=== PATIENT | male | born 1945 | race Caucasian/White ===

== ENCOUNTER 2016-10-28 17:06 | Inpatient (IN) ==
[2016-10-28] MEDS ORDERED: ADENOSINE 6 MG/2 ML VIAL ONE (17:11)
[2016-10-28] MEDS ORDERED: ADENOSINE 6 MG/2 ML VIAL IV STA ×2 (17:27→17:28)
[2016-10-28 17:33] LABS: Basophils # 0.1 10*3/uL (0.0-0.2); Basophils % 0.6 % (0.0-0.8); Eosinophils # 0.4 10*3/uL (0.0-0.87); Eosinophils % 4.2 % (0.00-10.9); Hematocrit 46.1 VOL% (42.0-52.0); Hemoglobin 14.9 GM/DL (14.0-18.0); Immature Granulocytes % 0.3 %; Immature Granulocytes Absolute 0.03 #; Lymphocytes # 2.8 10*3/uL (1.4-4.0); Lymphocytes % 31.3 % (21.2-54.2); Mean Corpuscular HGB Conc 32.3 GM/DL (32-36); Mean Corpuscular Hemoglobin 26 PG (27-34); Mean Corpuscular Volume 81.6 FL (87-102); Mean Platelet Volume 12.1 FL (9.6-12.0); Monocytes # 0.9 10*3/uL (0.11-0.8); Neutrophils # 4.8 10*3/uL (1.4-7.4); Neutrophils % 53.6 % (38.7-73.9); Platelet Count 218 10*3/uL (130-400); Red Blood Count 5.65 10*6/uL (3.8-5.5); Red Cell Distribution Width 14.7 % (9.3-17.3)
--- NOTE | 2016-10-28 17:33 | Emergency Department Note ---
Kevin Cuevas Brittany, am scribing for, and in the presence of, Katty Pinedo DO 17:28. Khris Cuevas Debra, DO, personally performed the services described in this documentation, ascribed by Rain Brown in my presence, and it is both accurate and complete 733 . Arrival - Arrival Chief Complaint: Chest Pain ED Nursing Triage Note: c/o stabbing chest pain to center of chest. 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 He states that while eating dinner this evening he began to have heart palpitations that soon was followed by chest pain. Patient notes that after arrival to the ED he became short of breath and pain began to radiate into his back and down bilateral upper extremities. He denies any recent change in medications. Patient reports that some of his regular medications include Lisinopril, Aspirin 81 mg, and Metformin. Patient has a history of 5 vessel bypass on June 12, [address] Crook. Patient at time of history and physical has a heart rate of 174 beats per minute. After 2 Adenosine, patients heart rate is now at 92 beats per minute. No other complaint /pain. Allergies/Adverse Reactions: Allergies Allergy/AdvReac Type Severity Reaction Status Date / Time aspirin Allergy Unknown/Unable Verified 10/28/16 17:27 to obtain coconut Allergy Unknown/Unable Verified 10/28/16 17:27 to obtain coconut oil Allergy Unknown/Unable Verified 10/28/16 17:27 to obtain iodine Allergy Unknown/Unable Verified 10/28/16 17:27 to obtain latex Allergy Unknown/Unable Verified 10/28/16 17:27 to obtain Macrolide Antibiotics Allergy Unknown/Unable Verified 10/28/16 17:27 to obtain Penicillins Allergy Unknown/Unable Verified 10/28/16 17:27 to obtain Shellfish Allergy Unknown/Unable Verified 10/28/16 17:27 to obtain Sulfa (Sulfonamide Allergy Unknown/Unable Verified 10/28/16 17:27 Antibiotics) to obtain Pork AdvReac Unknown/Unable Verified 10/28/16 17:27 to obtain Whipped Cream AdvReac Unknown/Unable Verified 10/28/16 17:27 to obtain Home Medications: Home Medications Medication Instructions Recorded Confirmed Type glyBURIDE [Glyburide] 5 mg PO BID W/MEALS 06/03/16 10/28/16 History Lisinopril 5 mg PO DAILY 06/19/16 10/28/16 History metFORMIN [Glucophage] 500 mg PO DAILY 06/19/16 10/28/16 History Aspirin [Ecotrin] 81 mg PO QAM 10/28/16 10/28/16 History Review of System - Review of System 12 point system: reviewed and no additional remarkable complaints except as stated - Review of System Constitutional: Absent: diaphoresis, weakness Respiratory: Present: respiratory distress Cardiovascular: Present: chest pain Gastrointestinal: Absent: abdominal pain, nausea, vomiting Genitourinary male: Absent: urgency, dysuria, frequency Musculoskeletal: Present: arm pain, back pain. Absent: neck pain Neurological: Absent: headache Medical,Surgical,& Family Hx - Medical History Cardio: History of: CAD, Hypertension Neurology: No history of: Seizures Endocrine: History of: Diabetes Mellitus (IDDM), Dyslipidemia Respiratory: History of: Asthma, Intubation, Pneumonia Gastrointestinal: History of: GERD Musculoskeletal: History of: Back/Neck Problems (titanium maynor in neck, X3 surgeries) - Surgical History Cardiac Surgeries: Sugical HX of: Cardiac Catheterization (may2016), Cardiac Surgery (CABG [address] Rodriguez) Abdominal Surgeries: Patient denies: Abdominal Surgery Orthopedic Surgeries: Surgical HX of;: Orthopedic Surgery (right knee surgery april2016) - Family History Family History: Reports;: Family Cancer, Family Diabetes, Family Heart Disease, Family Hypertension, Family Stroke - Social History Smoking Status: Former smoker Exam Vital Signs: Vital Signs Temperature 96.9 F L 10/28/16 17:09 Pulse Rate 176 H 10/28/16 17:09 Respiratory Rate 20 10/28/16 17:23 Blood Pressure 193/132 10/28/16 17:09 O2 Sat by Pulse Oximetry 100 10/28/16 17:09 - General General appearance: alert, in no apparent distress, obese (mildly) - Head Head exam: Present: atraumatic, normocephalic - Eye Eye exam: Present: PERRL, EOMI - ENT ENT exam: Present: mucous membranes moist, TM's normal bilaterally - Neck Neck exam: Present: full ROM, trachea midline. Absent: tenderness - Chest Chest inspection: Present: symmetric chest wall rise. Absent: normal inspection (scar consistent with recent open heart surgery), tenderness - Respiratory Respiratory exam: Present: rales (to the right). Absent: normal lung sounds bilaterally - Cardiovascular Cardiovascular exam: Present: normal rhythm, tachycardia (174 beats per minute) , normal heart sounds. Absent: regular rate - Abdominal Exam Abdominal exam: Present: soft, normal bowel sounds. Absent: distention, tenderness - Extremities Exam Extremities exam: Present: full ROM. Absent: tenderness, pedal edema - Back Exam Back exam: Present: full ROM. Absent: tenderness - Neurological Exam Neurological exam: Present: alert, oriented X3, CN II-XII intact, normal gait, reflexes normal. Absent: motor sensory deficit - Psychiatric Psychiatric exam: Present: normal affect, normal mood - Skin Skin exam: Present: warm, dry, intact, normal color Course Course Narrative: dr Infante to admit pt Results - Labs CBC & BMP: 10/28/16 17:11 10/28/16 17:11 Lab Results: I have reviewed the patients labs Labs: Laboratory Tests 10/28/16 17:11 WBC 9.0 RBC 5.65 H Hgb 14.9 Hct 46.1 MCV 81.6 L MCH 26 L MCHC 32.3 RDW 14.7 Plt Count 218 MPV 12.1 H Neut % (Auto) 53.6 Lymph % (Auto) 31.3 [place] % (Auto) 10.0 Eos % (Auto) 4.2 Baso % (Auto) 0.6 Neut # (Auto) 4.8 Lymph # (Auto) 2.8 [place] # (Auto) 0.9 H Eos # (Auto) 0.4 Baso # (Auto) 0.1 Immature Gran % 0.3 Nucleated RBC % 0.0 Immature Gran # 0.03 Nucleated RBCs # 0.00 Laboratory Tests 10/28/16 17:11 Sodium 142 Potassium 4.2 Chloride 105 Carbon Dioxide 26 Anion Gap 15.2 H BUN 16 Creatinine 1.40 H GFR Calculation 60 BUN/Creatinine Ratio 11.00 Glucose 123 H Calculated Osmolality 284.1 Calcium 9.1 Total Bilirubin < 0.39 AST 21 ALT 20 Alkaline Phosphatase 93 Total Creatine Kinase 122 CK-MB (CK-2) 6.1 H CK and CKMB Interp 5.0 Troponin I 0.567 H Total Protein 7.0 Albumin 4.0 Globulin 3.0 Albumin/Globulin Ratio 1.3 Laboratory Tests 10/28/16 10/28/16 17:11 17:11 INR 1.0 PT Patient/Control Mix 10.7 Circ Anticoag PTT 27.0 B-Natriuretic Peptide 492 H - Diagnostic Findings Procedure: Chest x-ray: report reviewed by me (Continued cardiomegaly without fransico pulmonary edema.) Disposition Clinical Impression: Chest pain Case discussed with: patient, patient's family Disposition: Still a Patient Condition: Stable Time of Disposition: 19:23
[2016-10-28 17:49] LABS: Alanine Aminotransferase 20 U/L (16-61); Alkaline Phosphatase 93 U/L (45-117); Aspartate Amino Transferase 21 U/L (0-37); Bilirubin,Total < 0.39 MG/DL (0.2-1.0); Blood Urea Nitrogen 16 MG/DL (7-18); Calcium 9.1 MG/DL (8.5-10.1); Glucose 123 MG/DL (74-106); Osmolality,Calculated 284.1 MOS/KG (273-304); Potassium 4.2 MMOL/L (3.5-5.1); Sodium 142 MMOL/L (136-145)
[2016-10-28 17:50] LABS: Troponin I Only 0.567 NG/ML (0.00-0.045)
--- NOTE | 2016-10-28 17:55 | XRay Report ---
XR chest 1V portable Indication: Chest pain Comparison: Chest x-ray dated June 19, 2016 Technique: Single frontal view of the chest Findings: Continued cardiomegaly status post sternotomy. No focal consolidation, pleural effusion, or pneumothorax. Osseous and surrounding soft tissue structures appear grossly unchanged. IMPRESSION: Continued cardiomegaly without fransico pulmonary edema. PROCEDURE INTERPRETED AT [facility] DEPARTMENT OF RADIOLOGY Final Report Signed by: Dr Osmel Forde
[2016-10-28 18:04] LABS: PT Patient Result 10.7 SECS
[2016-10-28] MEDS ORDERED: SODIUM CHLORIDE 0.9% 1,000 ML IV STA (18:50)
[2016-10-28] MEDS ORDERED: MAGNESIUM SULF RIDER 2 GM in PREMIX 1 EACH IV PRN (19:24)
[2016-10-28] MEDS ORDERED: MAGNESIUM SULF RIDER 4 GM in PREMIX 1 EACH IV PRN (19:24)
[2016-10-28] MEDS ORDERED: MORPHINE 2 MG/1 ML SYRINGE IV PRN (19:24)
[2016-10-28] MEDS ORDERED: ONDANSETRON 4 MG/2 ML VIAL IV PRN (19:24)
[2016-10-28] MEDS ORDERED: traZODone 50 MG TABLET PO PRN (19:24)
[2016-10-28] MEDS ORDERED: ENOXAPARIN 40 MG/0.4 ML SYRINGE SUBCUT SCH (19:30)
[2016-10-28 20:36] LABS: Risk Ratio 4.24; Thyroid Stimulating Hormone 4.22 uIU/ml (0.358-3.74); VLDL CHOLESTEROL 54.4 MG/DL
--- NOTE | 2016-10-28 20:36 | Cardiology History & Physical ---
Assessment and Plan (1) SVT (supraventricular tachycardia) Status: Acute Assessment and plan: 71yM, ICM s/p CABG, HTN, HLP, T2DM. Presented with first episode of symptomatic SVT, converted with adenosine. Enzymes suggestive of demand ischemia. Mild BRENDON. -Cont ASA, increase metoprolol to 50 mg bid -Add Crestor 10 mg qd -Cont lisinopril -LE US, r/o DVT -Telemetry -resume diabetic meds -Echo -trend cardiac enzymes, recheck ECG. So far, demand ischemia due to sustained high HR is likely -If the arrhythmia is refractory to medical management, EPS/ablation can be pursued. -iv hydration, recheck BMP in AM Current Visit: Yes (2) Ischemic cardiomyopathy Status: Acute Current Visit: No (3) Hypertension Status: Acute Current Visit: No (4) Diabetes mellitus Status: Acute Current Visit: No (5) Hyperlipidemia Status: Acute Current Visit: No History of Present Illness Chief complaint: SVT History of present illness: Mr. Tse is a 71 year old male, followed by dr. Ramirez. H/o CAD, s/p CABG 05/2016. HTN, HLP, T2DM. He did well post surgery and is actually completing cardiac rehab. Today, after lunch he developed sudden onset sustained palpitations. He never had this before. This later caused chest pressure and he came to the ER for evaluation. A regular narrow QRS tachycardia was found, which converted with adenosine. No visible R-P. Cardiac biomarkers mildly elevated. He is now feeling better. Post surgery, he developed RLE swelling, which is not improving much. The sternal incision healed well. Home Medications Medication Instructions Recorded Confirmed Type glyBURIDE [Glyburide] 5 mg PO BID W/MEALS 06/03/16 10/28/16 History Lisinopril 5 mg PO DAILY 06/19/16 10/28/16 History metFORMIN [Glucophage] 500 mg PO DAILY 06/19/16 10/28/16 History Aspirin [Ecotrin] 81 mg PO QAM 10/28/16 10/28/16 History Allergies Allergy/AdvReac Type Severity Reaction Status Date / Time aspirin Allergy Unknown/Unable Verified 10/28/16 17:27 to obtain coconut Allergy Unknown/Unable Verified 10/28/16 17:27 to obtain coconut oil Allergy Unknown/Unable Verified 10/28/16 17:27 to obtain iodine Allergy Unknown/Unable Verified 10/28/16 17:27 to obtain latex Allergy Unknown/Unable Verified 10/28/16 17:27 to obtain Macrolide Antibiotics Allergy Unknown/Unable Verified 10/28/16 17:27 to obtain Penicillins Allergy Unknown/Unable Verified 10/28/16 17:27 to obtain Shellfish Allergy Unknown/Unable Verified 10/28/16 17:27 to obtain Sulfa (Sulfonamide Allergy Unknown/Unable Verified 10/28/16 17:27 Antibiotics) to obtain Pork AdvReac Unknown/Unable Verified 10/28/16 17:27 to obtain Whipped Cream AdvReac Unknown/Unable Verified 10/28/16 17:27 to obtain 12 point system: reviewed and no additional remarkable complaints except as stated Medical,Surgical,& Family Hx - Medical History Cardio: History of: CAD, Hypertension Neurology: No history of: Seizures Endocrine: History of: Diabetes Mellitus (IDDM), Dyslipidemia Respiratory: History of: Asthma, Intubation, Pneumonia Gastrointestinal: History of: GERD Musculoskeletal: History of: Back/Neck Problems (titanium maynor in neck, X3 surgeries) - Surgical History Cardiac Surgeries: Sugical HX of: Cardiac Catheterization (may2016), Cardiac Surgery (CABG [address] vess[address] Rodriguez) Abdominal Surgeries: Patient denies: Abdominal Surgery Orthopedic Surgeries: Surgical HX of;: Orthopedic Surgery (right knee surgery april2016) - Family History Family History: Reports;: Family Cancer, Family Diabetes, Family Heart Disease, Family Hypertension, Family Stroke - Social History Smoking Status: Former smoker Frequency of Alcohol Use: None Type of Drug Use: None Cardiology Physical Exam - Constitutional Vitals: Vital Signs Temp Pulse Resp BP Pulse Ox 96.9 F L 79 20 131/64 94 L 10/28/16 17:09 10/28/16 19:47 10/28/16 19:47 10/28/16 19:47 10/28/16 19:47 General appearance: over weight - Head Head exam: Present: normal inspection - Eye Eye exam: Absent: conjunctival injection Pupils: Absent: dilated - ENT ENT exam: Present: normal exam - Neck Neck exam: Present: normal inspection - Respiratory Respiratory exam: Present: clear to auscultation bilaterally - Cardiovascular Cardiovascular exam: Present: regular rate and rhythm - GI/Abdominal GI/Abdominal exam: Present: normal bowel sounds - Extremities Exam Extremities exam: Present: normal inspection, normal capillary refill, other ( RLE swelling, incision healed per secondary intention) - Back Exam Back exam: Present: normal inspection - Neurological Exam Neurological exam: Present: alert, oriented X3 - Psychiatric Psychiatric exam: Present: normal affect, normal mood - Skin Skin exam: Present: normal color, warm. Absent: cyanosis Result/EKG - Labs CBC & BMP: 10/28/16 17:11 10/28/16 17:11 Lab Results: I have reviewed the past 24 hour labs - EKG EKG results: interpreted by me
[2016-10-28] MEDS ORDERED: ROSUVASTATIN 10 MG TABLET PO SCH (21:00)
[2016-10-28] MEDS ORDERED: GLUCAGON 1 MG VIAL IM PRN (21:37)
[2016-10-28] MEDS ORDERED: DEXTROSE 50% 25 GM/50 ML VIAL IV PRN (21:37)
[2016-10-28 21:38] LABS: CKMB % 7.3 %
[2016-10-28 21:42] LABS: Troponin I Only 1.16 NG/ML (0.00-0.045)
[2016-10-28] MEDS: INSULIN LISPRO 100 UNIT/ML SUBCUT SCH (22:14)
--- NOTE | 2016-10-28 22:27 | Ultrasound Report ---
US venous doppler LE BI Indication: RLE swelling. Comparison: No relevant comparison. Technique: Grayscale, spectral, and color Doppler interrogation of the bilateral lower extremity veins was performed. Augmentation and compression was performed. Findings: Grayscale, color Doppler, and pulsed Doppler evaluation of the veins of the bilateral lower extremity demonstrate no evidence of deep venous thrombosis. IMPRESSION: No evidence of deep venous thrombosis in the bilateral lower extremity. PROCEDURE INTERPRETED AT [facility] DEPARTMENT OF RADIOLOGY Final Report Signed by: Dr Osmel Forde
[2016-10-28 23:37] LABS: CKMB % 8.4 %
[2016-10-28 23:43] LABS: Troponin I Only 1.59 NG/ML (0.00-0.045)
[2016-10-28] MEDS: SODIUM CHLORIDE 0.9% 1,000 ML IV SCH (23:44)
[2016-10-29 06:16] LABS: CKMB % 7.3 %
[2016-10-29 06:19] LABS: Troponin I Only 1.44 NG/ML (0.00-0.045)
[2016-10-29] MEDS ORDERED: glyBURIDE 5 MG TABLET PO SCH (08:00)
[2016-10-29] MEDS ORDERED: metFORMIN 500 MG TABLET PO SCH (09:00)
[2016-10-29] MEDS ORDERED: LISINOPRIL 5 MG TABLET PO SCH (09:00)
[2016-10-29] MEDS ORDERED: ASPIRIN EC 81 MG TABLET PO SCH (09:00)
[2016-10-29] MEDS ORDERED: METOPROLOL SUCCINATE XL 50 MG TABLET PO SCH (09:00)
--- NOTE | 2016-10-29 09:08 | EKG Report ---
Stationary ECG Study [facility] Test Date: 10/29/2016 9:07:29 AM Pat Name: BERTRAM MOTTA Department: Room: 282 Gender: M Remediation Technician: KEYANA : 1945 Requested by: Katty Pinedo Order Number: [id number] Reading MD: ELIZABETH REEVES Intervals [place] Rate: 61 P: 49 MO: 149 QRS: 96 QRSD: 89 T: -32 QT: 410 QTc: 413 Interpretive Statements SINUS RHYTHM WITH OCCASIONAL VENTRICULAR PREMATURE COMPLEXES BORDERLINE RIGHT AXIS DEVIATION LOW QRS VOLTAGE IN PRECORDIAL LEADS NONSPECIFIC T-WAVE ABNORMALITY Electronically Signed On 10-29-16 20:49:42 RANGE MANAGEMENT SPECIALIST by ELIZABETH REEVES [email or web address]
--- NOTE | 2016-10-29 09:55 | EKG Report ---
Stationary ECG Study [facility] ER Test Date: 10/28/2016 5:19:23 PM Pat Name: BERTRAM MOTTA Department: Room: 282 Gender: M Human Resources Assistant: QIAN : 1945 Requested by: Katty Pinedo Order Number: [id number] Reading MD: ELIZABETH REEVES Intervals [place] Rate: 97 P: 999 TN: 0 QRS: 90 QRSD: 96 T: 42 QT: 332 QTc: 387 Interpretive Statements Normal sinus rhythm W/ VPB'S POSSIBLE ANTERIOR MYOCARDIAL INFARCTION, OF INDETERMINATE AGE vs IVCD PROBABLE INFERIOR MYOCARDIAL INFARCTION, PROBABLY OLD Electronically Signed On 10-29-16 20:38:51 PARLIAMENTARY LIBRARIAN by ELIZABETH REEVES [email or web address]
--- NOTE | 2016-10-29 09:56 | EKG Report ---
Stationary ECG Study [facility] ER Test Date: 10/28/2016 5:08:43 PM Pat Name: BERTRAM MOTTA Department: Room: 282 Gender: M District Adviser: QIAN : 1945 Requested by: Katty Pineod Order Number: [id number] Reading MD: ELIZABETH REEVES Intervals [place] Rate: 176 P: 999 FL: 0 QRS: 60 QRSD: 109 T: 39 QT: 246 QTc: 340 Interpretive Statements SUPRAVENTRICULAR TACHYCARDIA PROBABLE INFERIOR MYOCARDIAL INFARCTION, PROBABLY OLD Electronically Signed On 10-29-16 20:37:58 COPY WORKER by ELIZABETH REEVES [email or web address]
[2016-10-29] MEDS: INSULIN LISPRO 100 UNIT/ML SUBCUT SCH ×2 (10:05→12:23)
[2016-10-29] MEDS: SODIUM CHLORIDE 0.9% 1,000 ML IV SCH (12:22)
[2016-10-29 16:17] VITALS: BP 112/51
--- NOTE | 2016-10-29 16:29 | Discharge Summary ---
Derek Cuevas Lauren, RN, am scribing for, and in the presence of, Francisco Infante MD 16: 27. Hospital Course - Hospital Course Hospital Course: Mr. Tse is a 71 year old male who is routinely followed by Dr. Ramirez. He has a history of coronary artery disease status post coronary artery bypass grafting 05/2016, hypertension, hyperlipidemia, and non insulin dependent diabetes mellitus. He was admitted yesterday with sudden onset palpitations, later developing chest pressure. He presented to the emergency department and was found to have supraventricular tachycardia. To his knowledge, this had never happened before. A regular narrow QRS tachycardia was found, which converted with adenosine. No visible R-P. Cardiac biomarkers were mildly elevated, demand ischemia due to sustained high heart rate. Since converting from SVT, his rhythm has been normal sinus rhythm with occasional PVC's, no acute changes. He has had continued lower extremity edema following CABG. He underwent venous doppler ultrasound today which showed no evidence of deep venous thrombosis in the bilateral lower extremities. Blood pressure has remained stable since being admitted to the telemetry unit. Following conversion with adenosine, heart rate has remained well controlled with rates of 50-70's. At this time he is feeling much better and is ready to be discharged yessenia. We discussed options for management of symptomatic supraventricular tachycardia , we will continue increased dose metoprolol for now. If the arrhytmia will be difficult to control medically, he could be a candidate for EP study/ablation. He is to follow up with Dr. Ramirez in 1 week with an EKG. - Time spent with patient Time with patient DS: Less than 30 minutes Diagnosis - Discharge Diagnosis (1) SVT (supraventricular tachycardia) Status: Acute (2) Diabetes mellitus Status: Acute (3) Hyperlipidemia Status: Acute (4) Hypertension Status: Acute (5) Ischemic cardiomyopathy Status: Acute Specialty Discharge - Follow Up or Referrals Follow up with: Rangel Ramirez MD [Physician] - 11/05/16 2:00 pm (Follow up with Dr. Ramirez November 05, 2016 at 2:00 PM with EKG. ) - Discharge Medications New Metoprolol Succinate Xl [Toprol Xl] 50 mg PO DAILY #30 tablet Rosuvastatin [Crestor] 10 mg PO BEDTIME #30 tablet Continue glyBURIDE [Glyburide] 5 mg PO BID W/MEALS metFORMIN [Glucophage] 500 mg PO DAILY Lisinopril 5 mg PO DAILY Aspirin [Ecotrin] 81 mg PO QAM Discharge Plan - Discharge Data Disposition: Disch To Home/Self Care Condition at Discharge: Stable Discharge Diet: heart healthy Activity: resume usual activities as tolerated Hygiene: no restrictions Weight Bearing at Discharge: full weight bearing - Discharge Medications New Metoprolol Succinate Xl [Toprol Xl] 50 mg PO DAILY #30 tablet Rosuvastatin [Crestor] 10 mg PO BEDTIME #30 tablet Continue glyBURIDE [Glyburide] 5 mg PO BID W/MEALS metFORMIN [Glucophage] 500 mg PO DAILY Lisinopril 5 mg PO DAILY Aspirin [Ecotrin] 81 mg PO QAM - Follow Up or Referral Follow Up: Rangel Ramirez MD [Physician] - 11/05/16 2:00 pm (Follow up with Dr. Ramirez November 05, 2016 at 2:00 PM with EKG. ) - Forms/Instructions Exam - Constitutional Vitals: Period Temp Pulse Resp BP Sys/Bolanos Pulse Ox Last 24 Hr 96.1 F-98.6 F 54-79 20-20 121-157/60-68 94-98 General appearance: no acute distress, morbidly obese - Head Head exam: Present: normal inspection, normocephalic - Eye Eye exam: Absent: conjunctival injection, periorbital swelling, scleral icterus Pupils: Present: ALEKSANDR. Absent: irregular - ENT ENT exam: Present: normal exam, normal external ear exam - Neck Neck exam: Present: normal inspection. Absent: tenderness - Respiratory Respiratory exam: Present: clear to auscultation bilaterally. Absent: accessory muscle use, chest wall tenderness, rales, rhonchi, stridor, wheezes - Cardiovascular Cardiovascular exam: Present: regular rate and rhythm. Absent: carotid bruit, diastolic murmur, systolic murmur - GI/Abdominal GI/Abdominal exam: Present: normal bowel sounds, soft. Absent: distended, mass , tenderness - Extremities Exam Extremities exam: Present: normal inspection, normal capillary refill, edema (1 + non pitting edema to BLE) - Back Exam Back exam: Present: normal inspection. Absent: vertebral tenderness - Neurological Exam Neurological exam: Present: alert, oriented X3, other (grossly intact, no resting or essential tremor) - Psychiatric Psychiatric exam: Present: normal affect, normal mood - Skin Skin exam: Present: normal color, warm, dry Discharge Results Labs on day of discharge: Labs from last 24 hours 10/29/16 10/29/16 10/29/16 11:42 07:43 05:08 POC Glucose 124 H 99 Total Creatine Kinase 130 CK-MB (CK-2) 9.5 H CK and CKMB Interp 7.3 Troponin I 1.440 H 10/28/16 10/28/16 10/28/16 22:49 21:02 20:59 POC Glucose 97 Total Creatine Kinase 133 139 CK-MB (CK-2) 11.2 H 10.1 H CK and CKMB Interp 8.4 7.3 Troponin I 1.590 H D 1.160 H D DS: Provider Expected date of discharge: 10/29/16 Arelis Cuevas Attila, MD, personally performed the services described in this documentation, ascribed by Lakia Reed RN in my presence, and it is both accurate and complete 628 .
--- NOTE | 2016-10-29 19:31 | ECHO Report ---
Jake Tse 10/29/2016 Exam Date: 08:06 Referring Physician: Bebe Mehtanologist: Age: 71 Ht (in): Wt (lb): MExam Location: [facility] Gender: Echo [id number]: SVT, Chest pain, hyperlipidemia, CADIndications: cardiomyopathy, HTN, Diabetes BP: / HR: SinusRhythm: Technical Quality: IMPRESSIONS Mildly dilated left ventricle, without hypertrophy, with mild global hypokinesis. Estimated left ventricular ejection fraction 40%. Grade 2 diastolic dysfunction. Mild biatrial enlargement. Mild aortic, tricuspid and mitral valve insufficiency. MEASUREMENTS (Male / Female) Normal Values 2D ECHO LV Diastolic Diameter PLAX 5.2 cm 4.2 - 5.9 / 3.9 - 5.3 cm LV Systolic Diameter PLAX 4.4 cm LV Fractional Shortening PLAX 16.4 % IVS Diastolic Thickness 1.5 cm 0.6 - 1.0 / 0.6 - 0.9 cm LVPW Diastolic Thickness 1.3 cm 0.6 - 1.0 / 0.6 - 0.9 cm RV Internal Dim ED PLAX 3.1 cm Aortic Root Diameter 3.0 cm LA Systolic Diameter LX 4.7 cm 3.0 - 4.0 / 2.7 - 3.8 cm DOPPLER TR Peak Velocity 210.0 cm/s TR Peak Gradient 17.6 mmHg FINDINGS Left Ventricle Mildly dilated left ventricle, without hypertrophy, with mild global hypokinesis. Estimated left ventricular ejection fraction 40%. Grade 2 diastolic dysfunction. Right Ventricle Normal right ventricular size. Right Atrium Mildly dilated right atrium. Left Atrium Mildly dilated left atrium. Mitral Valve Mildly thickened mitral valve with mild mitral regurgitation. Aortic Valve Structurally normal, with mild aortic valve regurgitation. Tricuspid Valve Morphologically normal tricuspid valve. Mild tricuspid valve regurgitation. Tricuspid regurgitation velocities suggest a PAP of 16 mmHg + RAP. Pulmonic Valve Morphologically normal pulmonic valve. Pericardium No pericardial effusion. Aorta Normal size aortic root and proximal ascending aorta. Francisco Infante (Electronically Signed) 29 October 2016 Final Date: 19:30
== END 2016-10-29 17:24 | disposition home or self-care (01) | DRG 310 ==
LOC: EDBD → EDUNIT# → N.ED 17:06 → N.EDINP 19:24 → N.TELEN 19:44
PROVIDERS: ADMIT Internal Medicine Interventional Cardiology; ATTEND Internal Medicine Interventional Cardiology

== ENCOUNTER 2018-10-14 13:48 | Observation (INO) ==
[2018-10-14] MEDS ORDERED: SODIUM CHLORIDE 0.9% 500 ML IV STA (14:26)
[2018-10-14] MEDS ORDERED: DIPH/TET/ACEL PERT BOOSTER VACCINE 0.5 ML VIAL IM ONE (14:26)
[2018-10-14 15:03] LABS: Basophils % 0.5 % (0.0-0.8); Eosinophils # 0.4 10*3/uL (0.0-0.87); Eosinophils % 4.3 % (0.00-10.9); Hematocrit 41.2 VOL% (42.0-52.0); Hemoglobin 13.7 GM/DL (14.0-18.0); Immature Granulocytes % 0.2 %; Immature Granulocytes Absolute 0.02 #; Lymphocytes # 1.4 10*3/uL (1.4-4.0); Lymphocytes % 16.8 % (21.2-54.2); Mean Corpuscular HGB Conc 33.3 GM/DL (32-36); Mean Corpuscular Hemoglobin 29 PG (27-34); Mean Corpuscular Volume 86.4 FL (87-102); Mean Platelet Volume 11.6 FL (9.6-12.0); Monocytes # 0.6 10*3/uL (0.11-0.8); Monocytes % 7.8 % (1.7-12.7); Neutrophils # 5.8 10*3/uL (1.4-7.4); Neutrophils % 70.4 % (38.7-73.9); Platelet Count 203 T/CUMM (130-400); Red Blood Count 4.77 MC/CUMM (3.8-5.5); Red Cell Distribution Width 13.4 % (9.3-17.3); White Blood Count 8.2 T/CUMM (4-12)
[2018-10-14 15:11] LABS: INR 0.9; PT Patient Result 10.2 SECS
[2018-10-14 15:30] LABS: Alanine Aminotransferase 33 U/L (16-61); Albumin 3.5 G/DL (3.4-5.0); Alkaline Phosphatase 86 U/L (45-117); Aspartate Amino Transferase 23 U/L (0-37); Blood Urea Nitrogen 14 MG/DL (7-18); Calcium 9.1 MG/DL (8.5-10.1); Glucose 230 MG/DL (74-106); Osmolality,Calculated 282.7 MOS/KG (273-304); Potassium 4.2 MMOL/L (3.5-5.1); Sodium 138 MMOL/L (136-145); Total Protein 6.9 G/DL (6.4-8.3); Troponin I < 0.015 NG/ML (0.00-0.045)
[2018-10-14 16:26] LABS: Apearance,Urine CLEAR (Clear); Bacteria,Urine Occasional /HPF (Few); Bilirubin,Urine Negative (Negative); Blood, Urine Negative (Negative); Glucose,Urine (UA) 150 mg/dL (Negative); Ketones,Urine Negative (Negative); Nitrite,Urine Negative (Negative); Protein,Urine Negative; RBC,Urine <1 /HPF (0-4); Urine Color Yellow (Yellow); Urine Specific Gravity 1.013 (1.001-1.035); Urine Urobilinogen < 2.0 EU/DL (0.2-1.0)
[2018-10-14] MEDS ORDERED: GLUCAGON 1 MG VIAL IM PRN (16:43)
[2018-10-14] MEDS ORDERED: DEXTROSE 50% 25 GM/50 ML VIAL IV PRN (16:43)
[2018-10-14] MEDS ORDERED: ENOXAPARIN 40 MG/0.4 ML SYRINGE SUBCUT SCH (17:00)
[2018-10-14] MEDS ORDERED: ATORVASTATIN 10 MG TABLET PO SCH (23:00)
[2018-10-14] MEDS ORDERED: SERTRALINE 25 MG TABLET PO SCH (23:00)
[2018-10-14] MEDS ORDERED: CLOPIDOGREL 75 MG TABLET PO SCH (23:00)
[2018-10-15 06:36] LABS: Calcium 8.7 MG/DL (8.5-10.1); Osmolality,Calculated 283.1 MOS/KG (273-304); Potassium 4.2 MMOL/L (3.5-5.1); Risk Ratio 2.82; VLDL CHOLESTEROL 26.8 MG/DL
[2018-10-15] MEDS: INSULIN REGULAR 100 UNIT/ML SUBCUT SCH ×2 (07:27→12:22)
[2018-10-15] MEDS ORDERED: LISINOPRIL 5 MG TABLET PO SCH (09:00)
[2018-10-15] MEDS ORDERED: ASPIRIN EC 81 MG TABLET PO SCH (09:00)
[2018-10-15 11:35] VITALS: BP 140/50
[2018-10-15] MEDS ORDERED: CLOPIDOGREL 75 MG TABLET PO SCH (21:00)
[2018-10-15] MEDS ORDERED: ATORVASTATIN 10 MG TABLET PO SCH (21:00)
[2018-10-15] MEDS ORDERED: SERTRALINE 25 MG TABLET PO SCH (21:00)
[2018-10-16] MEDS ORDERED: AMIODARONE 200 MG TABLET PO SCH (09:00)
== END 2018-10-15 14:16 | disposition home or self-care (01) ==
LOC: N.EDINP 13:48 → N.ED 13:48 → N.EDINP 17:58 → N.TELEN 18:02
PROVIDERS: ADMIT Internal Medicine Infectious Disease; ATTEND Internal Medicine Infectious Disease